=== PATIENT | female | born 1935 ===

== ENCOUNTER → 2017-09-27 | Emergency (ER) | payer OTHER ==
[~2017-09-27] VITALS: Ht 157.5 cm; Wt 55.3 kg
[~2017-09-27] MED LIST: COZAAR50 MG
== END | disposition home or self-care (01) ==
LOC: ER 16:06
DX: S00.83XA Contusion of other part of head, initial encounter (principal); S29.8XXA Other specified injuries of thorax, initial encounter; R42 Dizziness and giddiness; W18.09XA Striking against other object with subsequent fall, initial encounter; Y93.89 Activity, other specified; Y92.013 Bedroom of single-family (private) house as the place of occurrence of the external cause; Y99.8 Other external cause status

== ENCOUNTER → 2018-10-04 | Emergency (ER) | payer OTHER ==
[~2018-10-04] VITALS: Ht 160 cm; Wt 54.4 kg
== END | disposition home or self-care (01) ==
LOC: ER 14:56
DX: S00.83XA Contusion of other part of head, initial encounter (principal); S80.212A Abrasion, left knee, initial encounter; W01.198A Fall on same level from slipping, tripping and stumbling with subsequent striking against other object, initial encounter; Y93.01 Activity, walking, marching and hiking; Y92.018 Other place in single-family (private) house as the place of occurrence of the external cause; Y99.8 Other external cause status